=== PATIENT | female | born 1965 | race Caucasian/White ===

== ENCOUNTER 2017-07-14 16:22 | Outpatient (CLI) ==
[2017-07-14 16:44] LABS: BASOPHILS % (AUTO) 0.6 % (0.0-3.0); EOSINOPHILS # (AUTO) 0.1 K/ul (0.0-0.7); HEMATOCRIT 36.5 % (37.0-47.0); HEMOGLOBIN 12.8 g/dl (12.0-16.0); IMMATURE GRANULOCYTE % (AUTO) 0.3 % (0.0-5.0); LYMPHOCYTES # (AUTO) 2.1 K/uL (0.60-3.4); LYMPHOCYTES % (AUTO) 30.1 (10.0-50.0); MEAN CORPUSCULAR HEMOGLOBIN 32.8 pg (27.0-31.0); MEAN CORPUSCULAR HGB CONC 35.1 (31.8-35.4); MEAN CORPUSCULAR VOLUME 93.6 fl (81.0-99.0); MONOCYTES # (AUTO) 0.5 K/uL (0.4-2.0); MONOCYTES % (AUTO) 7.4 (0-10); NEUTROPHILS # (AUTO) 4.1 K/ul (2.0-6.9); NEUTROPHILS % (AUTO) 59.6; PLATELET COUNT 289 10^3/uL (140-440); WHITE BLOOD COUNT 6.91 K/ul (4.6-10.2)
[2017-07-14 17:27] LABS: ALBUMIN 3.9 g/dL (3.4-5.0); ALBUMIN/GLOBULIN RATIO 0.98; ANION GAP 13.7; BILIRUBIN,TOTAL 0.38 mg/dL (0.00-1.20); BUN/CREATININE RATIO 17.64; CALCIUM 9.4 mg/dL (8.2-10.2); CHOL/HDL RATIO 6.9 (4.5-5.5); CREATININE 0.85 mg/dL (0.60-1.30); POTASSIUM 3.7 mmol/L (3.5-5.10); TOTAL PROTEIN 7.9 g/dL (6.4-8.2)
== END 2017-07-14 16:23 | disposition home or self-care (01) ==
LOC: LAB 16:22
PROVIDERS: ATTEND Emergency Medicine
DX: J06.9 Acute upper respiratory infection, unspecified (principal); F17.200 Nicotine dependence, unspecified, uncomplicated
CPT/HCPCS: 36415; 80053; 80061; 84443; 85025

== ENCOUNTER 2018-05-18 17:54 | Outpatient (CLI) | END 2018-05-18 17:55 | disposition home or self-care (01) | LOC: RHC-LAB 17:54 | PROVIDERS: ATTEND Emergency Medicine | DX: L02.811 Cutaneous abscess of head [any part, except face] (principal) | CPT/HCPCS: 87070; 87186 ==

== ENCOUNTER 2018-06-11 12:07 | Outpatient (CLI) | END 2018-06-11 12:08 | disposition home or self-care (01) | LOC: RHC-LAB 12:07 | PROVIDERS: ATTEND Emergency Medicine | DX: K21.9 Gastro-esophageal reflux disease without esophagitis (principal); Z83.3 Family history of diabetes mellitus; Z00.00 Encounter for general adult medical examination without abnormal findings | CPT/HCPCS: 36415; 80053; 80061; 83036; 84443; 85025 ==

== ENCOUNTER 2018-10-16 08:47 | Emergency (ER) | payer OTHER ==
[2018-10-16 08:51] VITALS: BP 133/84; TEMP 98.6; BMI 24.5
--- NOTE | 2018-10-16 09:01 | ED.PDOC ---
General ED Provider: Dr. MYRA RIOS Chief Complaint: Respiratory Complaint Stated Complaint: sinus pain , cough, congestion Time Seen by Physician: 09:00 (seen with cassandra at all times ) Mode of Arrival: Walk-In Information Source: Patient Exam Limitations: No limitations Primary Care Provider: SANDRA GRIFFIN Nursing and Triage Documentation Reviewed and Agree: Yes Does patient meet sepsis criteria?: No System Inflammatory Response Syndrome: Not Applicable Sepsis Protocol: For patient's 13 years and over: Temp is 96.8 and below OR 101 and greater Pulse >90 BPM Resp >20/minute Acutely Altered Mental Status Are patient's symptoms suggestive of a new infection, such as: -Pneumonia -Skin, Soft Tissue -Endocarditis -UTI -Bone, Joint Infection -Implantable Device -Acute Abdominal Infection -Wound Infection -Meningitis -Blood Stream Catheter Infection -Unknown Respiratory Complaint Exam - Respiratory Complaint/Exam Onset/Duration: 3 days Symptoms Are: Still present Initial Severity: Moderate Current Severity: Moderate Location: Nose, Throat, Chest Character: Reports: Non-productive cough, Dry cough Aggravating: Reports: URI Alleviating: Reports: None Associated Signs and Symptoms: Reports: URI, Nasal congestion. Denies: Rapid breathing, Dyspnea, Fever, Chills, Chest pain, Pleuritic chest pain, Wheezing, Hemoptysis, Dizziness, Calf pain, Calf swelling, Edema, Hoarseness, Sinus discomfort, Vomiting, Sore throat, Weight loss, Decreased oral intake, Increased thirst, Increased appetite, Increased urination Related History: Reports: Similar episode History of Healthcare-Acquired Pneumonia: No Related Surgical History: Reports: None Pulmonary Embolism Risk Factors: None Cardiac Risk Factors: Reports: None Pseudomonas Risk Factors: Reports: None Tuberculosis Risk Factors: Reports: None Status Asthmaticus Risk Factors: Reports: None Home Oxygen Use: No Recent Stress Test: No Recent Echo/LV Function: No Current Antibiotic Use: No Current Asthma Medication Use: No Respiratory Distress: None Inadequate Respiratory Effort: No Dysphagia Present: No Stridor Present: No JVD Present: No Accessory Muscle Use: No Retractions: Not Present Diminished Breath Sounds: No Sinus Tenderness: None Grunting Respirations: No Kussmaul Respirations: No Differential Diagnoses: Pneumonia, Bronchitis Review of Systems - Review Of Systems Constitutional: Reports: Malaise Eyes: Reports: No symptoms Ears, Nose, Mouth, Throat: Reports: Throat pain Respiratory: Reports: Cough Cardiac: Reports: No symptoms GI: Reports: No symptoms : Reports: No symptoms Musculoskeletal: Reports: No symptoms Skin: Reports: No symptoms Neurological: Reports: No symptoms Endocrine: Reports: No symptoms Hematologic/Lymphatic: Reports: No symptoms All Other Systems: Reviewed and Negative Past Medical History - Past Medical History Previously Healthy: Yes Endocrine: Reports: Dyslipidemia Cardiovascular: Reports: None Respiratory: Reports: None Hematological: Reports: None Gastrointestinal: Reports: None Genitourinary: Reports: None Neuro/Psych: Reports: None Musculoskeletal: Reports: None Cancer: Reports: None Last Menstrual Period: 2 YEARS - Surgical History General Surgical History: Reports: None - Family History Family History: Reports: None - Social History Smoking Status: Former smoker Hx Substance Use: No Alcohol Screening: None Physical Exam - Physical Exam Appearance: Well-appearing, No pain distress, Well-nourished Eyes: JAIRO, EOMI, Conjunctiva clear ENT: Oropharynx normal (maxiallry sinus pain) Respiratory: Rhonchi Cardiovascular: RRR, Pulses normal, No rub, No murmur GI/: Soft, Nontender, No masses, Bowel sounds normal, No Organomegaly Musculoskeletal: Normal strength, ROM intact, No edema, No calf tenderness Skin: Warm, Dry, Normal color Neurological: Sensation intact, Motor intact, Reflexes intact, Cranial nerves intact, Alert, Oriented Psychiatric: Affect appropriate, Mood appropriate Critical Care Note - Critical Care Note Total Time (mins): 0 Course - Course Vital Signs: Temp Pulse Resp BP Pulse Ox 10/16/18 08:48 98.6 F 88 16 133/84 97 Departure - Departure Time of Disposition: 09:01 Disposition: HOME SELF-CARE Discharge Problem: Sinusitis Qualifiers: Sinusitis location: maxillary Chronicity: unspecified Qualified Code(s): J32.0 - Chronic maxillary sinusitis Instructions: Sinusitis (ED) Condition: Good Pt referred to PMD for follow-up: Yes IPMP verified?: No Additional Instructions: Please call your Family Physician as soon as possible to schedule a follow-up appointment. Allergies/Adverse Reactions: Allergies No Known Allergies Allergy (Unverified 07/14/17 15:39)
== END 2018-10-16 09:05 | disposition home or self-care (01) ==
LOC: ED 08:47
DX: J32.0 Chronic maxillary sinusitis (principal)
CPT/HCPCS: 99282

== ENCOUNTER 2018-11-02 07:08 | Outpatient (CLI) | END 2018-11-02 07:09 | disposition home or self-care (01) | LOC: LAB 07:08 | PROVIDERS: ATTEND Nurse Practitioner Family | DX: D64.9 Anemia, unspecified (principal); E78.5 Hyperlipidemia, unspecified; E78.1 Pure hyperglyceridemia | CPT/HCPCS: 36415; 80053; 80061; 85025 ==

== ENCOUNTER 2019-02-27 06:39 | Emergency (ER) ==
[2019-02-27 06:44] VITALS: TEMP 98.1; BMI 23.5
[2019-02-27] MEDS ORDERED: TORADOL IVP STA (06:46)
--- NOTE | 2019-02-27 06:46 | ED.PDOC ---
General Stated Complaint: left flank abdominal pain Time Seen by Physician: 19:45 Mode of Arrival: Walk-In Exam Limitations: No limitations Nursing and Triage Documentation Reviewed and Agree: Yes Does patient meet sepsis criteria?: No If yes, has appropriate treatment been initiated?: Yes System Inflammatory Response Syndrome: Not Applicable <FAINA DE LA ROSA - Last Filed: 02/27/19 06:55> <MYRA RIOS - Last Filed: 02/27/19 08:37> ED Provider: Dr. MYRA RIOS Chief Complaint: Kidney Stone Primary Care Provider: SANDRA GRIFFIN Sepsis Protocol: For patient's 13 years and over: Temp is 96.8 and below OR 101 and greater Pulse >90 BPM Resp >20/minute Acutely Altered Mental Status Are patient's symptoms suggestive of a new infection, such as: -Pneumonia -Skin, Soft Tissue -Endocarditis -UTI -Bone, Joint Infection -Implantable Device -Acute Abdominal Infection -Wound Infection -Meningitis -Blood Stream Catheter Infection -Unknown Review of Systems - Review Of Systems Constitutional: Reports: Chills, Sweats Eyes: Reports: No symptoms Ears, Nose, Mouth, Throat: Reports: No symptoms Respiratory: Reports: No symptoms Cardiac: Reports: No symptoms GI: Reports: Abdominal pain, Nausea : Reports: Flank pain Musculoskeletal: Reports: No symptoms Skin: Reports: No symptoms Neurological: Reports: No symptoms Endocrine: Reports: No symptoms Hematologic/Lymphatic: Reports: No symptoms All Other Systems: Reviewed and Negative <FAINA DE LA ROSA - Last Filed: 02/27/19 06:55> Past Medical History - Past Medical History Previously Healthy: Yes Endocrine: Reports: Dyslipidemia Cardiovascular: Reports: None Respiratory: Reports: None Hematological: Reports: None Gastrointestinal: Reports: None Genitourinary: Reports: None Neuro/Psych: Reports: None Musculoskeletal: Reports: None Cancer: Reports: None - Surgical History General Surgical History: Reports: None - Family History Family History: Reports: None - Social History Smoking Status: Former smoker Hx Substance Use: No Alcohol Screening: None <FAINA DE LA ROSA - Last Filed: 02/27/19 06:55> Physical Exam - Physical Exam Appearance: Well-appearing Ill-appearing: Mild Pain Distress: Moderate Eyes: JAIRO, EOMI, Conjunctiva clear ENT: Ears normal, Nose normal, Oropharynx normal Respiratory: Airway patent, Breath sounds clear, Breath sounds equal, Respirations nonlabored Cardiovascular: RRR, Pulses normal, No rub, No murmur GI/: Soft, Nontender, No masses, Bowel sounds normal, No Organomegaly Musculoskeletal: Normal strength, ROM intact, No edema, No calf tenderness Skin: Warm, Dry, Normal color Neurological: Sensation intact, Motor intact, Reflexes intact, Cranial nerves intact, Alert, Oriented Psychiatric: Anxious <FAINA DE LA ROSA - Last Filed: 02/27/19 06:55> Re-Evaluation - Re-Evaluation Time of Re-Evaluation: 08:00 Status: Improved Vital Signs Stable: Yes Pain Level: 0 Appearance: NAD Lungs: Clear Skin: Warm and Dry Neuro: Alert and Oriented X3 CV: RRR - Re-Evaluation Time of Re-Evaluation: 08:36 Status: Improved Vital Signs Stable: Yes Appearance: NAD Skin: Warm and Dry Neuro: Alert and Oriented X3 CV: RRR <GABRIELMYRA - Last Filed: 02/27/19 08:37> Physician Notification - Case Discussed Physician Notified: lory partida Time of Notification: 08:36 (will see pt 8 am ) <GABRIELMYRA - Last Filed: 02/27/19 08:37> Critical Care Note - Critical Care Note Total Time (mins): 0 <RJFAINA - Last Filed: 02/27/19 06:55> Course - Course Hematology/Chemistry: 02/27/19 06:55 02/27/19 06:55 <GABRIELMYRA - Last Filed: 02/27/19 08:37> - Course Orders, Labs, Meds: Lab Review 02/27/19 02/27/19 02/27/19 06:42 06:55 06:55 WBC 7.50 RBC 4.18 L Hgb 13.6 Hct 39.9 MCV 95.5 MCH 32.5 H MCHC 34.1 RDW Coeff of [place] 12.5 Plt Count 268 Immature Gran % (Auto) 0.3 Neut % (Auto) 66.5 Lymph % (Auto) 25.6 Jerome % (Auto) 5.5 Eos % (Auto) 1.7 Baso % (Auto) 0.4 Immature Gran # (Auto) 0.0 Neut # (Auto) 5.0 Lymph # (Auto) 1.9 Jerome # (Auto) 0.4 Eos # (Auto) 0.1 Baso # (Auto) 0.0 Sodium 141.0 Potassium 4.26 Chloride 106.6 Carbon Dioxide 24.4 Anion Gap 14.26 BUN 17.7 H Creatinine 0.97 Estimated GFR (MDRD) 60.00 BUN/Creatinine Ratio 18.24 Glucose 119.8 H Calcium 9.06 Total Bilirubin 0.76 AST 23.7 ALT 19.9 Alkaline Phosphatase 77.6 Total Protein 7.53 Albumin 4.58 Globulin 2.95 Albumin/Globulin Ratio 1.55 Urine Color Yellow Urine Clarity Clear Urine pH 6.5 Ur Specific [place] 1.025 Urine Protein Negative Urine Glucose (UA) Negative Urine Ketones Negative Urine Blood 1+ Urine Nitrite Negative Urine Bilirubin Negative Urine Urobilinogen 1.0 Ur Leukocyte Esterase Negative Urine Microscopic RBC 5-10 Urine Microscopic WBC 0-2 Ur Squamous Epith Cells 2-5 Urine Bacteria Trace Orders Category Date Time Status IV [ED IV/MEDIPORT/POWERPORT] .ONCE EMERGENCY 02/27/19 06:46 Active CBC W/ AUTO DIFF Stat LAB 02/27/19 06:55 Completed CMP [COMPREHENSIVE METABOLIC PANEL] Stat LAB 02/27/19 06:55 Completed UA [URINALYSIS C & S IF INDICATED] Stat LAB 02/27/19 06:42 Completed 0.9 % Sodium Chloride [Saline Flush] MEDS 02/27/19 06:46 Active 1 syr IVF PRN PRN Ketorolac Tromethamine [Toradol] MEDS 02/27/19 06:46 Discontinued 60 mg IVP ONCE STA Ondansetron HCl/Pf [Zofran 4 mg/2 ml] MEDS 02/27/19 06:48 Discontinued 4 mg IVP ONCE STA CT ABD/PEL WO RENAL STONE PROT Stat RADS 02/27/19 06:47 Completed Medications Generic Name Dose Route Start Last Admin Trade Name Freq PRN Reason Stop Dose Admin Sodium Chloride 1 syr 02/27/19 06:46 02/27/19 07:05 Saline Flush IVF 1 syr PRN PRN Administration To flush IV Discontinued Medications Generic Name Dose Route Start Last Admin Trade Name Freq PRN Reason Stop Dose Admin Ketorolac Tromethamine 60 mg 02/27/19 06:46 02/27/19 06:54 Toradol IVP 02/27/19 06:47 30 mg ONCE STA Administration Ondansetron HCl 4 mg 02/27/19 06:48 02/27/19 06:54 Zofran 4 Mg/2 Ml IVP 02/27/19 06:49 4 mg ONCE STA Administration Vital Signs: Temp Pulse Resp BP Pulse Ox 02/27/19 08:11 135/80 02/27/19 06:40 98.1 F 82 20 148/104 H 99 Departure <RJFAINA - Last Filed: 02/27/19 06:55> - Departure Time of Disposition: 08:36 Pt referred to PMD for follow-up: Yes IPMP verified?: No Disposition Discussed With: Patient <GABRIELMYRA - Last Filed: 02/27/19 08:37> - Departure Disposition: HOME SELF-CARE Discharge Problem: Kidney stone Instructions: Renal Colic (ED), Flank Pain (ED), Kidney Stones (ED) Condition: Good Additional Instructions: Please call your Family Physician as soon as possible to schedule a follow-up appointment.lory PARTIDA WILL SEE IN AM 8 AM Allergies/Adverse Reactions: Allergies No Known Allergies Allergy (Unverified 02/27/19 06:43) Home Medications: Ambulatory Orders Docusate Sodium [Stool Softener] 100 mg PO BID 11/05/18
[2019-02-27] MEDS ORDERED: ZOFRAN 4 MG/2 ML IVP STA (06:48)
--- NOTE | 2019-02-27 07:29 | CT ---
EXAM: CT ABDOMEN AND PELVIS HISTORY: Left flank pain TECHNIQUE: CT abdomen and pelvis without intravenous contrast. Images were reconstructed using 3 mm section thickness. Reformations were prepared. COMPARISON: None FINDINGS: There is mild to moderate left hydronephrosis secondary to a distal ureteral calculus measuring 4.9 x 1.6 x 2.3 mm. The calculus is at the vesicoureteral junction. There is mild left perinephric fat s tranding. No other renal or ureteral calculi. There is a 3 cm water attenuation mass of the lower a nterior right renal cortex most consistent with a cyst. Urinary bladder proper is grossly within nor mal limits. Within limits of this unenhanced exam, no focal hepatic or splenic lesions are identified. Gallbladd er is absent. Pancreas is within normal limits. Normal adrenal glands. Moderate atherosclerotic di sease with distal aortic narrowing. Normal stomach and appendix. Nonobstructive bowel gas pattern. Uterus is within normal limits. There is no ascites or there is no ascites. No ventral abdominal w all hernia. Degenerative facet disease of the lower spine. Hemangioma involvement of at least the L 1 vertebral body with no height loss or fracture. Lung bases are clear. No pneumoperitoneum. IMPRESSION: 1. Mild to moderate left hydronephrosis secondary to a distal ureteral calculus at the vesicouretera l junction measuring up to 0.49 cm. 2. Moderate atherosclerosis.
[2019-02-27 08:15] VITALS: BP 135/80
== END 2019-02-27 09:13 | disposition home or self-care (01) ==
LOC: ED 06:39
DX: N20.0 Calculus of kidney (principal); E78.5 Hyperlipidemia, unspecified
CPT/HCPCS: 36415; 74176; 80053; 81001; 85025; 96374; 96375; 99283